=== PATIENT | female | born 1955 | race Caucasian/White ===

== ENCOUNTER 2019-12-25 09:35 | Day surgery (SDC) | payer MEDICARE, MEDICAID, SELFPAY ==
[2019-12-21 15:30] VITALS: BMI 36.9
[2019-12-25 10:04] VITALS: BP 122/73; PULSE 96; RESP 18; TEMP 36; O2SAT 96
[2019-12-25] MEDS: sodium chloride 0.9% 1,000 ML 30 ML IV (10:13)
--- NOTE | 2019-12-25 10:15 | P.ANESASSM_ITS ---
Pre-Anesthetic Assessment Pre-Anesthetic Assessment: Height/Weight: Height 1.65 m Weight 100.698 kg Temp Pulse Resp BP Pulse Ox 96.8 F L 96 18 122/73 96 12/25/19 10:04 12/25/19 10:04 12/25/19 10:04 12/25/19 10:04 12/25/19 10:04 Preop Diagnosis: gerd screening Proposed Procedure: Operation Date: 12/25/19 11:45 Proposed Procedures p EGD(Not Applicable) - Sharad Lopes MD s Colonoscopy 09894 Z12.11(Not Applicable) - Sharad Lopes MD Last intake: Intake Last Liquid Date 12/24/19 Last Liquid Time 20:00 Social: Social History: Tobacco (1999) and No alcohol Exam: Pre-Anes Outpt Exam: alert, oriented x 3, clear to auscultation bilaterally and regular rate & rhythm Airway: Submandibular: WNL Cervical ROM: WNL MP: 1 Dentition: False (upper and lower) History/ROS: No significant history except as noted Pulmonary: Pulmonary: CANAS CV/HEM: CV/HEM: HTN : : None reported Hepatic: Hepatic: None reported GI: GI: GERD (daily) Metabolic: Metabolic: DM, Hyperlipidemia, Morbid obesity and Thyroid Musc/skel: Musc/skel: Lower Back Pain, OA/DJD and Weakness (gen) Neuropsych: Neuropsych: Anxiety, CVA (no risidual), Depression and Neuropathy (feet and hands) Anesthetic Plan: ASA status: 3 Anesthesia: Anesthesia Evaluation and MAC Risk of > 500 ml blood loss (7ml/kg in children): No Meds/Allergies Current Medications: Current Medications Generic Name Dose Route Start Last Admin Trade Name Freq PRN Reason Stop Dose Admin Sodium Chloride 1,000 mls @ 30 ml s/hr 12/25/19 10:00 12/25/19 10:13 Sodium Chloride 0.9% IV 30 mls/hr .Q24H GLORY Administration PFSH Anesthesia PFSH: Medical History CVA (cerebral vascular accident) Diabetes Gastroesophageal reflux disease Hyperlipidemia Hypertension Surgical History History of arthroplasty of right ankle History of bladder suspension procedure History of colonoscopy History of esophagogastroduodenoscopy (EGD) History of hysterectomy History of laparoscopic cholecystectomy Family History Denies family history of Anesthesia complication Bleeding disorder Social History Smoking and tobacco status: former smoker Second hand smoke exposure: No Alcohol intake: never Adopted: No Caregiver/support person: Yes Lives independently: Yes Household members: spouse Housing: House Marital status: service: No Current occupational status: retired Pets and animals: No History of recent travel: No Sexually active: No Current gender identity: Female Ofelia/Restoration: Ep[employer]alian Special ofelia needs: No Data Anesthesia Cardiac Studies: No Data to Display
[2019-12-25 10:16] LABS: Glucose Point of Care 131 mg/dL (70-110)
--- NOTE | 2019-12-25 11:31 | W.PM.OPSUD ---
Surgery/Procedure H&P Update DATE OF PROCEDURE: December 25, 2019 DATE H&P PERFORMED: 12/10/19 H&P UPDATE INFORMATION: I have reviewed H&P completed within last 30 days, I have examined patient prior to procedure and No changes to prior documentation PREOP DIAGNOSIS: gerd screening PLANNED PROCEDURE: Operation Date: 12/25/19 11:45 Proposed Procedures p EGD(Not Applicable) - Sharad Lopes MD s Colonoscopy 28017 Z12.11(Not Applicable) - Sharad Lopes MD
[2019-12-25 11:35] VITALS: BP 96/64; PULSE 84; RESP 16; TEMP 36.8; O2SAT 93
--- NOTE | 2019-12-25 11:37 | ANE.PACU2 ---
Inpatient post-anesthesia follow up: Airway intact: Yes Vital signs: Temperature 98.3 F Pulse Rate 84 Respiratory Rate 16 Blood Pressure 96/64 Pulse Oximetry 93 Oxygen Delivery Me thod Nasal Cannula Oxygen Flow Rate 2.0 Fraction of Inspir ed Oxygen Hydration adequate: Yes Nausea and vomiting: No Pain level: 1 Mental status: Baseline
[2019-12-25 11:51] VITALS: BP 97/57; PULSE 85; RESP 18; O2SAT 92
== END 2019-12-25 12:10 | disposition home or self-care (01) ==
PROVIDERS: PCP Nurse Practitioner Family; Visit Provider Surgery
PROC: 0DJ08ZZ Inspection of Upper Intestinal Tract, Via Natural or Artificial Opening Endoscopic (ICD-10-PCS; CPT 43235; principal; 2019-12-25 11:45)
PROC: 0DJD8ZZ Inspection of Lower Intestinal Tract, Via Natural or Artificial Opening Endoscopic (ICD-10-PCS; CPT 45378; 2019-12-25 11:45)
DX: Z12.11 Encounter for screening for malignant neoplasm of colon (principal); K21.9 Gastro-esophageal reflux disease without esophagitis; K57.30 Diverticulosis of large intestine without perforation or abscess without bleeding; K29.70 Gastritis, unspecified, without bleeding; I10 Essential (primary) hypertension; E11.9 Type 2 diabetes mellitus without complications; E78.5 Hyperlipidemia, unspecified; E66.01 Morbid (severe) obesity due to excess calories; Z68.36 Body mass index [BMI] 36.0-36.9, adult; M19.90 Unspecified osteoarthritis, unspecified site; Z86.73 Personal history of transient ischemic attack (TIA), and cerebral infarction without residual deficits; Z79.82 Long term (current) use of aspirin
CPT/HCPCS: 12345; 36416; 43239; 45378; 82962; 88305; J2704; J7030

== ENCOUNTER → 2020-03-13 14:03 | Outpatient (BNVA) | payer MEDICARE, MEDICAID, SELFPAY | PROVIDERS: PCP Nurse Practitioner Family; Referring Provider Nurse Practitioner Family; Visit Provider Nurse Practitioner Family | DX: M25.571 Pain in right ankle and joints of right foot (principal); M12.571 Traumatic arthropathy, right ankle and foot | CPT/HCPCS: 73610 ==

== ENCOUNTER → 2020-04-09 08:38 | Outpatient (BNVA) | payer MEDICARE, MEDICAID, SELFPAY | PROVIDERS: PCP Nurse Practitioner Family; Referring Provider Nurse Practitioner Family; Visit Provider Podiatrist Foot & Ankle Surgery | DX: M25.572 Pain in left ankle and joints of left foot (principal) | CPT/HCPCS: 73610 ==

== ENCOUNTER 2020-04-29 06:00 | Outpatient (RCR) | payer MEDICARE, MEDICAID, SELFPAY | END 2020-05-24 23:59 | disposition home or self-care (01) | LOC: MOT 06:00 | PROVIDERS: PCP Nurse Practitioner Family; Referring Provider Podiatrist Foot & Ankle Surgery; Visit Provider Podiatrist Foot & Ankle Surgery | DX: M19.171 Post-traumatic osteoarthritis, right ankle and foot (principal); M19.172 Post-traumatic osteoarthritis, left ankle and foot; M24.571 Contracture, right ankle | CPT/HCPCS: 97166 ==

== ENCOUNTER → 2021-05-18 14:35 | Outpatient (BNVA) | payer MEDICARE, MEDICAID, SELFPAY | PROVIDERS: PCP Nurse Practitioner Family; Referring Provider Nurse Practitioner Family; Visit Provider Internal Medicine | DX: E11.42 Type 2 diabetes mellitus with diabetic polyneuropathy (principal); I63.9 Cerebral infarction, unspecified; E78.5 Hyperlipidemia, unspecified; N18.31 Chronic kidney disease, stage 3a; Z79.4 Long term (current) use of insulin | CPT/HCPCS: 99204 ==

== ENCOUNTER → 2021-06-04 13:23 | Outpatient (BNVA) | payer MEDICARE, MEDICAID, SELFPAY | PROVIDERS: PCP Nurse Practitioner Family; Visit Provider Internal Medicine | DX: E11.22 Type 2 diabetes mellitus with diabetic chronic kidney disease (principal); E11.42 Type 2 diabetes mellitus with diabetic polyneuropathy; E78.5 Hyperlipidemia, unspecified; N18.31 Chronic kidney disease, stage 3a; Z87.891 Personal history of nicotine dependence; Z79.4 Long term (current) use of insulin; Z68.36 Body mass index [BMI] 36.0-36.9, adult; Z86.73 Personal history of transient ischemic attack (TIA), and cerebral infarction without residual deficits | CPT/HCPCS: 99214 ==

== ENCOUNTER → 2021-06-17 14:27 | Outpatient (BNVA) | payer MEDICARE, MEDICAID, SELFPAY | PROVIDERS: PCP Nurse Practitioner Family; Visit Provider Internal Medicine | DX: E11.42 Type 2 diabetes mellitus with diabetic polyneuropathy (principal); E04.1 Nontoxic single thyroid nodule; I63.9 Cerebral infarction, unspecified; E78.5 Hyperlipidemia, unspecified; Z79.4 Long term (current) use of insulin | CPT/HCPCS: 99214 ==

== ENCOUNTER → 2021-09-14 14:10 | Outpatient (BNVA) | payer MEDICARE, MEDICAID, SELFPAY | PROVIDERS: PCP Nurse Practitioner Family; Visit Provider Internal Medicine | DX: E11.42 Type 2 diabetes mellitus with diabetic polyneuropathy (principal); E78.5 Hyperlipidemia, unspecified; N18.31 Chronic kidney disease, stage 3a; Z79.4 Long term (current) use of insulin; Z86.73 Personal history of transient ischemic attack (TIA), and cerebral infarction without residual deficits; Z86.16 Personal history of COVID-19 | CPT/HCPCS: 99214 ==

== ENCOUNTER 2021-10-06 11:46 | Outpatient (CLI) | payer MEDICARE, MEDICAID, SELFPAY ==
--- NOTE | 2021-10-06 12:00 | CTR_ITS ---
PROCEDURE INFORMATION: Exam: CT Abdomen And Pelvis With Contrast Exam date and time: 10/06/2021 12:00 PM Age: 66 years old Clinical indication: Abdominal pain; Localized; Right lower quadrant (rlq); Prior surgery; Surgery type: Gb; Additional info: C reactive protein serum elevated, mob TECHNIQUE: Imaging protocol: Computed tomography of the abdomen and pelvis with contrast. Radiation optimization: All CT scans at this facility use at least one of these dose optimization techniques: automated exposure control; mA and/or kV adjustment per patient size (includes targeted exams where dose is matched to clinical indication); or iterative reconstruction. Contrast material: OMNI 300; Contrast volume: 95 ml; Contrast route: INTRAVENOUS (IV); COMPARISON: US Pelvis Female [id number] 09/09/2018 4:20 PM RADIATION DOSE METRICS: Total DLP (mGy-cm): 1952.53 FINDINGS: Lungs: Infiltrate of unknown age is incompletely seen within the lingula and middle lobe. 2 mm nodule right lower lobe image 3/5. Small granuloma right lower lobe image 3/1. Liver: Enlarged moderately fatty liver 230 mm. Gallbladder and bile ducts: There is intra and extrahepatic biliary dilatation. The extrahepatic bile duct measures 13.5 cm. Status post cholecystectomy. On image number 3/34 and 3/35 there is a questionable 5 mm density within the distal common bile duct. This could be a small area of sludge versus a weakly calcified stone. Pancreas: Normal. No ductal dilation. Spleen: Splenic granulomata. Adrenal glands: Normal. No mass. Kidneys and ureters: Normal. No hydronephrosis. Stomach and bowel: Few scattered colonic diverticula. No evidence of colitis or diverticulitis. Appendix: Unremarkable visualized appendix. Intraperitoneal space: Unremarkable. No free air. No significant fluid collection. Vasculature: Unremarkable. No abdominal aortic aneurysm. Lymph nodes: Unremarkable. No enlarged lymph nodes. Urinary bladder: Unremarkable as visualized. Reproductive: Unremarkable as visualized. Bones/joints: Arthritis with minimal listhesis. Soft tissues: Unremarkable. Other findings: Moderate retained stool. CT/CT abdomen pelvis w con* [id number] IMPRESSION: 1. Intra and extrahepatic biliary dilatation status post cholecystectomy. Questionable weakly calcified density involving the distal common bile duct. Consider MRCP. 2. Right lower lobe nodule. For patients at low risk (minimal or absent history of smoking and of other known risk factors), no routine follow-up is indicated. For patients at high risk (history of smoking or of other known risk factors), consider optional CT Chest at 12 months. (Reference: Lora) 3. Large fatty liver. 4. Retained stool. REFERENCES: Lora Solares, et al. Guidelines for Management of Incidental Pulmonary Nodules Detected on CT Images: From the Fleischner Society 2017. Radiology. 2017;284(1):228-243.
[2021-10-06] MEDS: iohexol 300 mg/mL 50 mL Btl PO (12:30)
[2021-10-06 14:05] LABS: Blood Urea Nitrogen 22 mg/dL (8-23); Glomerular Filtration Rate 55.8 mL/min (90-130)
[2021-10-06] MEDS: iohexol 300 mg/mL 100 mL Btl IV (14:06)
== END 2021-10-06 11:47 | disposition home or self-care (01) ==
LOC: RAD 11:48
PROVIDERS: PCP Nurse Practitioner Family; Visit Provider Nurse Practitioner Family
DX: D72.829 Elevated white blood cell count, unspecified (principal); R79.82 Elevated C-reactive protein (CRP)
CPT/HCPCS: 73030; 74177; 82565; 84520

== ENCOUNTER 2021-10-20 14:21 | Outpatient (CLI) | payer MEDICARE, MEDICAID, SELFPAY ==
--- NOTE | 2021-10-20 15:40 | CT_ITS ---
WS: [id number] CONTRAST-ENHANCED CT HEAD TECHNIQUE: Contrast-enhanced CT of the head. CLINICAL INFORMATION: ELEVATED WHITE BLOOD CELL COUNT, C-REACTIVE PROTEIN, SERUM, COMPARISON: 2 16,019 DLP: 1163.[address] scans at [facility] use at least one of these dose optimization techniques: automated e xposure control; mA and/or kV adjustment per patient size (includes targeted exams where dose is matc hed to clinical indication); or iterative reconstruction. FINDINGS: No evidence of intracranial hemorrhage or mass effect. Ventricular system and basal cisterns are donis nt. Normal brooks-white differentiation. No extra-axial fluid collections. No abnormal intracranial enh ancement. Paranasal sinuses and mastoid air cells well aerated. Mild small vessel changes. Mild parenchymal volume loss. No other significant findings. CT/CT head w con [id number] IMPRESSION: 1. No abnormal intracranial enhancement. 2. Mild small vessel changes. Mild parenchymal volume loss. 3. No evidence of mass or mass effect.
[2021-10-20] MEDS: iohexol 300 mg/mL 100 mL Btl IV (16:13)
== END 2021-10-20 14:22 | disposition home or self-care (01) ==
LOC: RAD 14:22
PROVIDERS: PCP Nurse Practitioner Family; Visit Provider Nurse Practitioner Family
DX: D72.829 Elevated white blood cell count, unspecified (principal)
CPT/HCPCS: 70460

== ENCOUNTER 2021-12-03 14:55 | Outpatient (CLI) | payer MEDICARE, MEDICAID, SELFPAY ==
--- NOTE | 2021-12-03 16:00 | MR_ITS ---
WS: [id number] MRI/MRCP OF THE ABDOMEN WITHOUT GADOLINIUM ENHANCEMENT TECHNIQUE: Thin and thick slab MRCP, Axial T2, Coronal MRCP, Axial Dual Echo, and Axial 2-D Fiesta imaging was obtained. Coronal 2-D Fiesta imaging. CLINICAL INFORMATION: K76.0 - Fatty (change of) liver, not elsewhere classified COMPARISON: CT October 06, 2021 and ultrasound February 18, 2015 FINDINGS: Prior cholecystectomy. Unchanged dilatation of the intra and extrahepatic biliary ducts. Common bile duct measures approximately 10 mm. This appears unchanged since Ultrasound in 2014. No obstructing co mmon bile duct stones. Normal tapering of the common bile duct distally at the pancreatic head. Diffuse fatty infiltration of the liver. Hepatomegaly. Normal size spleen. Splenic granulomas. Small splenule. Normal portal vein and splenic vein. Tiny LEFT renal cyst. No pancreatic ductal dilatation. Adrenal glands are normal. No hydronephrosis in either kidney. Normal pancreas. Normal GE junction. Normal caliber abdominal aorta. MR/MR MRCP [id number] Impression: 1. Prior cholecystectomy. 2. Stable intra and extrahepatic biliary duct dilatation. Common bile duct vlad sures 10 mm. No evidence of choledocholithiasis. Normal tapering of the common bile duct distally. Common bile duct is unchanged since 2015 ultrasound. 3. Pancreas is normal in appearance. No evidence of pancreatic head mass. Norm al pancreatic duct. 4. Hepatomegaly with diffuse fatty infiltration liver. 5. No other significant findings.
== END 2021-12-03 14:56 | disposition home or self-care (01) ==
LOC: RAD 15:04
PROVIDERS: PCP Nurse Practitioner Family; Visit Provider Surgery
DX: K76.0 Fatty (change of) liver, not elsewhere classified (principal); K83.8 Other specified diseases of biliary tract; Z90.49 Acquired absence of other specified parts of digestive tract
CPT/HCPCS: 74181

== ENCOUNTER → 2021-12-09 14:57 | Outpatient (BNVA) | payer MEDICARE, MEDICAID, SELFPAY | PROVIDERS: PCP Nurse Practitioner Family; Visit Provider Surgery | DX: K76.0 Fatty (change of) liver, not elsewhere classified (principal); E66.9 Obesity, unspecified; Z68.35 Body mass index [BMI] 35.0-35.9, adult; E11.42 Type 2 diabetes mellitus with diabetic polyneuropathy | CPT/HCPCS: 99213 ==

== ENCOUNTER → 2021-12-15 14:05 | Outpatient (BNVA) | payer MEDICARE, MEDICAID, SELFPAY | PROVIDERS: PCP Nurse Practitioner Family; Visit Provider Internal Medicine | DX: E11.42 Type 2 diabetes mellitus with diabetic polyneuropathy (principal); E78.2 Mixed hyperlipidemia; E78.5 Hyperlipidemia, unspecified; I63.9 Cerebral infarction, unspecified; B37.9 Candidiasis, unspecified; Z79.4 Long term (current) use of insulin | CPT/HCPCS: 99214 ==

== ENCOUNTER → 2022-02-23 13:29 | Outpatient (BNVA) | payer MEDICARE, MEDICAID, SELFPAY | PROVIDERS: PCP Nurse Practitioner Family; Visit Provider Orthopaedic Surgery | DX: S49.91XA Unspecified injury of right shoulder and upper arm, initial encounter (principal); X58.XXXA Exposure to other specified factors, initial encounter | CPT/HCPCS: 99213 ==

== ENCOUNTER 2022-03-23 11:12 | Outpatient (CLI) | payer MEDICARE, MEDICAID, SELFPAY ==
--- NOTE | 2022-03-23 | US_ITS ---
WS: [id number] ULTRASOUND SOFT TISSUES LEFT clavicle HISTORY: EVAL LEFT SHOULDER FOR LIPOMA COMPARISON: None available. TECHNIQUE: 2-D and color Doppler imaging is submitted. Ultrasound is directed to the palpable area adjacent to the LEFT clavicle. There is an isoechoic mass with mild distortion of the soft tissues. There is slight mass effect upon the adjacent muscles. Hyp oechoic mass measures 2.1 x 0.8 cm and extends over a length of 3.3 cm. This is ovoid in configuratio n with no increased vascularity. US/US soft tissue/extremity [id number] IMPRESSION: Soft tissue mass adjacent to the LEFT clavicle is most consistent with a benign lipoma.
--- NOTE | 2022-03-23 11:45 | US_ITS ---
WS: [id number] THYROID ULTRASOUND HISTORY: Thyroid nodule. COMPARISON: None available. Right lobe: 2.1 cm x 1.6 cm x 3.9 cm (w x ap x l). Volume: 6.7 cm3. Normal size gland. No well formed nodules or echogenic foci. No increased vascularity. Left lobe: 1.3 cm x 1.1 cm x 4.0 cm (w x ap x l). Volume: 2.9 cm3. Small thyroid gland. Very nonspecific hypoechoic nodule measuring 4 x 3 x 5 mm in the inferior pole. No echogenic foci or suspicious findings. Isthmus: 0.3 cm. US/US thyroid [id number] IMPRESSION: TI-RADS 1. No suspicious thyroid nodules.
== END 2022-03-23 11:13 | disposition home or self-care (01) ==
LOC: RAD 11:14
PROVIDERS: PCP Nurse Practitioner Family; Visit Provider Internal Medicine
DX: E04.1 Nontoxic single thyroid nodule (principal); R22.32 Localized swelling, mass and lump, left upper limb
CPT/HCPCS: 76536; 76882

== ENCOUNTER → 2022-04-01 14:41 | Outpatient (BNVA) | payer MEDICARE, MEDICAID, SELFPAY | PROVIDERS: PCP Nurse Practitioner Family; Visit Provider Internal Medicine | DX: E11.69 Type 2 diabetes mellitus with other specified complication (principal); B37.9 Candidiasis, unspecified; E78.2 Mixed hyperlipidemia; Z86.73 Personal history of transient ischemic attack (TIA), and cerebral infarction without residual deficits; E78.5 Hyperlipidemia, unspecified; Z79.4 Long term (current) use of insulin; Z87.891 Personal history of nicotine dependence | CPT/HCPCS: 99214 ==

== ENCOUNTER → 2022-11-03 16:17 | Outpatient (BNVA) | payer BC, MEDICAID, SELFPAY | PROVIDERS: PCP Nurse Practitioner Family; Visit Provider Internal Medicine | DX: E04.1 Nontoxic single thyroid nodule (principal) | CPT/HCPCS: 84439; 84443; 84480 ==

== ENCOUNTER → 2023-11-24 13:52 | Outpatient (BNVA) | payer MEDICARE, MEDICAID, SELFPAY | PROVIDERS: PCP Nurse Practitioner Family; Visit Provider Podiatrist Foot & Ankle Surgery | DX: M19.171 Post-traumatic osteoarthritis, right ankle and foot | CPT/HCPCS: 73610; 73630; 99203 ==

== ENCOUNTER → 2023-11-28 13:32 | Outpatient (BNVA) | payer MEDICARE, MEDICAID, SELFPAY | PROVIDERS: PCP Nurse Practitioner Family; Referring Provider Nurse Practitioner Family; Visit Provider Surgery | DX: K52.9 Noninfective gastroenteritis and colitis, unspecified (principal); R10.13 Epigastric pain; Z98.84 Bariatric surgery status; R15.9 Full incontinence of feces; R32 Unspecified urinary incontinence | CPT/HCPCS: 99204; 99214 ==

== ENCOUNTER 2024-01-04 09:51 | Day surgery (SDC) | payer MEDICARE, MEDICAID, SELFPAY ==
[2024-01-04 10:18] VITALS: BP 99/70; PULSE 83; RESP 18; TEMP 36.4; O2SAT 93; BMI 23.1
[2024-01-04] MEDS: sodium chloride 0.9% 1,000 ML 30 ML IV (10:26)
--- NOTE | 2024-01-04 10:30 | ECG_ITS ---
[facility] Test Date: 2024-01-04 Pat Name: Britt Diaz Department: Room: Gender: Female Web Site Manager: : 1955 Requested By: Manuel Leiva Order Number: [id number] Louise MD: Marlon Kurtz M.D. Measurements Intervals Vernalis Rate: 74 P: 57 NC: 202 QRS: 46 QRSD: 97 T: 54 QT: 404 QTc: 451 Interpretive Statements SINUS RHYTHM Compared to ECG 12/09/2015 16:38:30 First degree AV block no longer present ST (T wave) deviation no longer present Early repolarization no longer present Electronically Signed On 01-04-2024 17:08:25 CDT by Marlon Kurtz M.D. [id number]
--- NOTE | 2024-01-04 10:33 | PM.HP ---
Providers/Chief Complaint Primary Care Provider: Carolina Mendoza Chief Complaint: K52.9, R10.13, R15.9 History of Present Illness Britt Diaz is a 68 year old female Review of Systems General: Reports: 10 or more systems reviewed and unremarkable except in HPI and below Medications/Allergies Home Medications Medication Instructions Recorded Confirmed Last Taken Type alprazolam 1 mg tablet 1 mg PO QID PRN Anxiety 12/10/19 01/03/24 01/04/24 08:00 History aspirin 325 mg tablet 325 mg PO DAILY 12/10/19 01/03/24 2 Weeks Ago History ~12/20/23 donepezil 10 mg tablet (Aricept) 10 mg PO DAILY 12/10/19 01/03/24 01/02/24 History duloxetine 60 mg capsule,delayed 60 mg PO DAILY 12/10/19 01/03/24 01/02/24 History release (Cymbalta) imipramine pamoate 100 mg capsule 200 mg PO DAILY 12/10/19 01/03/24 01/02/24 History memantine 5 mg tablet 5 mg PO QAM 12/10/19 01/03/24 01/02/24 History trazodone 100 mg tablet 200 mg PO QPM 12/10/19 01/03/24 01/02/24 History pantoprazole 40 mg tablet,delayed 40 mg PO QAM 6 weeks #42 tabs 01/08/20 01/03/24 01/02/24 Rx release (Protonix) non articulating AFO #1 ea 07/04/20 11/28/23 Unknown Rx blood-glucose meter (Blood Glucose #1 ea 06/04/21 11/28/23 Unknown Rx Monitoring kit) coenzyme Q10 75 mg capsule (Ultra 75 mg PO DAILY 08/06/21 01/03/24 01/02/24 History CoQ10) aripiprazole 5 mg tablet (Abilify) 5 mg PO DAILY 12/09/21 01/03/24 01/02/24 History biotin 10 mg tablet 10 mg PO DAILY 12/09/21 01/03/24 01/02/24 History cholecalciferol (vitamin D3) 125 125 mcg PO DAILY 12/09/21 01/03/24 01/02/24 History mcg (5,000 unit) capsule oxycodone 20 mg tablet 20 mg PO QID PRN Pain 12/09/21 01/03/24 01/04/24 08:00 History blood sugar diagnostic (OneTouch #300 strips 06/15/22 11/28/23 Unknown Rx Verio test strips) buspirone 10 mg tablet 10 mg PO BID 01/03/24 01/03/24 01/02/24 History dulaglutide 4.5 mg/0.5 mL 4.5 mg SUBCUT DIRECTED 01/03/24 01/03/24 12/29/23 History subcutaneous pen injector (Trulicity) empagliflozin 25 mg tablet 25 mg PO DAILY 01/03/24 01/03/24 01/02/24 History (Jardiance) hydroxyzine pamoate 25 mg capsule 25 mg PO BID PRN Anxiety 01/03/24 01/03/24 01/03/24 History levothyroxine 75 mcg tablet 75 mcg PO DAILY 01/03/24 01/03/24 01/04/24 08:00 History Allergies Allergy/AdvReac Type Severity Reaction Status Date / Time Antihistamines - Alkylamine Allergy Severe ADR/ALGY-Pa Verified 01/03/24 08:54 lpitations levofloxacin [From Levaquin] Allergy Severe ALGY-Rash Verified 01/03/24 08:54 PFSH Acute PFSH: Medical History (Updated 11/28/23 @ 14:16 by Marcelino Queen DO) Chronic pain Hyperlipidemia Gastroesophageal reflux disease Hypertension CVA (cerebral vascular accident) Diabetes Surgical History (Updated 11/28/23 @ 14:15 by Marcelino Queen DO) History of gastric bypass History of colonoscopy (12/25/19) Poor prep, repeat in 5 years History of esophagogastroduodenoscopy (EGD) (12/25/19) Severe gastritis History of arthroplasty of right ankle History of bladder suspension procedure History of hysterectomy History of laparoscopic cholecystectomy Family History Denies family history of Anesthesia complication Bleeding disorder Social History Smoking and tobacco/nicotine status: former use of tobacco/nicotine Second hand smoke exposure: No Alcohol intake: never Substance/Drug Use: never Adopted: No Caregiver/support person: Yes Lives independently: Yes Household members: spouse Housing: House Marital status: service: No Current occupational status: retired Pets and animals: No Sexually active: No Do you think of yourself as: Straight/Heterosexual Current gender identity: Female Ofelia/Zoroastrian: Evangelical Special ofelia needs: No Vitals/I&O/Wt Last Vital Signs Temp 97.6 F 01/04/24 10:18 Pulse 83 01/04/24 10:18 Resp 18 01/04/24 10:18 BP 99/70 01/04/24 10:18 Pulse Ox 93 01/04/24 10:18 O2 Del Method Room Air 01/04/24 10:18 Weight last 48 hrs Weight 143 lb A&P Assessment and plan (1) Gastroesophageal reflux disease: (2) Chronic diarrhea: (3) Encounter for screening colonoscopy: (4) Epigastric pain: Plan EGD and colonoscopy Attestations Medical Necessity Statement*: Home Coding Level of Care Code Acute Code for [facility] Fwd Diagnoses Gastroesophageal reflux disease K21.9 Chronic diarrhea K52.9 Encounter for screening colonoscopy Z12.11 Epigastric pain R10.13
[2024-01-04 10:35] LABS: Glucose Point of Care 121 mg/dL (70-110)
--- NOTE | 2024-01-04 10:53 | ANES.PREANE2 ---
Pre-Anesthetic Assessment Height/Weight: Height 1.68 m Weight 64.864 kg Temp Pulse Resp BP Pulse Ox O2 Del Method 97.6 F 83 18 99/70 93 Room Air 01/04/24 10:18 01/04/24 10:18 01/04/24 10:18 01/04/24 10:18 01/04/24 10:18 01/04/24 10:18 Operation Date: 01/04/24 11:00 Proposed Procedures p EGD 38101, 09604, G0105, K52.9, R10.13, R15.9(Not Applicable) - Marcelino Queen DO s Colonoscopy(Not Applicable) - Marcelino Queen DO Was Beta Aracely taken within 24 hours: N/A Was Clonidine taken within 24 hours: N/A Last intake: Intake Last Liquid Date 01/03/24 Last Liquid Time 23:50 Last Solid Date 01/02/24 Last Solid Time 20:00 Social No alcohol and No tobacco quit 25 years ago Exam alert, oriented x 3, clear to auscultation bilaterally and regular rate & rhythm Airway Submandibular: within normal limits Cervical ROM: within normal limits Mallampati: Class I Comments: Comments: dentures History/ROS No significant history except as noted and No significant complaints Pulmonary Chronic Obstructive Pulmonary Disease and Sleep Apnea patient has oxygen at home and prescribed 2 L NC but does not wear it. Patient had a sleep study and prescribed cpap but she does not wear it. that was before the 100 lbs weight loss after gastric bypass. sleeps in recliner with elevated HOB CV/HEM Hypertension and Palpitations METS > 6. EKG obtained, NSR. Chronic Renal Insufficiency Hepatic dilated CBD. patient denies liver problems GI epigastric pain radiating to back Metabolic Diabetes Mellitus and Thyroid Disease trulicity 1 week ago [facility] [place] Lower Back Pain Neuropsych Anxiety, Cerebrovascular Accident and Depression patient reports CVA was incidental finding but not residual Anesthetic Plan ASA status: 3 Anesthesia: Anesthesia Evaluation and MAC Risk of > 500 ml blood loss (7ml/kg in children): Yes, adequate IV access and fluids planned Medications/Allergies Home Medications Medication Instructions Recorded Confirmed Last Taken Type alprazolam 1 mg tablet 1 mg PO QID PRN Anxiety 12/10/19 01/03/24 01/04/24 08:00 History aspirin 325 mg tablet 325 mg PO DAILY 12/10/19 01/03/24 2 Weeks Ago History ~12/20/23 donepezil 10 mg tablet (Aricept) 10 mg PO DAILY 12/10/19 01/03/24 01/02/24 History duloxetine 60 mg capsule,delayed 60 mg PO DAILY 12/10/19 01/03/24 01/02/24 History release (Cymbalta) imipramine pamoate 100 mg capsule 200 mg PO DAILY 12/10/19 01/03/24 01/02/24 History memantine 5 mg tablet 5 mg PO QAM 12/10/19 01/03/24 01/02/24 History trazodone 100 mg tablet 200 mg PO QPM 12/10/19 01/03/24 01/02/24 History pantoprazole 40 mg tablet,delayed 40 mg PO QAM 6 weeks #42 tabs 01/08/20 01/03/24 01/02/24 Rx release (Protonix) non articulating AFO #1 ea 07/04/20 11/28/23 Unknown Rx blood-glucose meter (Blood Glucose #1 ea 06/04/21 11/28/23 Unknown Rx Monitoring kit) coenzyme Q10 75 mg capsule (Ultra 75 mg PO DAILY 08/06/21 01/03/24 01/02/24 History CoQ10) aripiprazole 5 mg tablet (Abilify) 5 mg PO DAILY 12/09/21 01/03/24 01/02/24 History biotin 10 mg tablet 10 mg PO DAILY 12/09/21 01/03/24 01/02/24 History cholecalciferol (vitamin D3) 125 125 mcg PO DAILY 12/09/21 01/03/24 01/02/24 History mcg (5,000 unit) capsule oxycodone 20 mg tablet 20 mg PO QID PRN Pain 12/09/21 01/03/24 01/04/24 08:00 History blood sugar diagnostic (OneTouch #300 strips 06/15/22 11/28/23 Unknown Rx Verio test strips) buspirone 10 mg tablet 10 mg PO BID 01/03/24 01/03/24 01/02/24 History dulaglutide 4.5 mg/0.5 mL 4.5 mg SUBCUT DIRECTED 01/03/24 01/03/24 12/29/23 History subcutaneous pen injector (Trulicity) empagliflozin 25 mg tablet 25 mg PO DAILY 01/03/24 01/03/24 01/02/24 History (Jardiance) hydroxyzine pamoate 25 mg capsule 25 mg PO BID PRN Anxiety 01/03/24 01/03/24 01/03/24 History levothyroxine 75 mcg tablet 75 mcg PO DAILY 01/03/24 01/03/24 01/04/24 08:00 History Allergies Allergy/AdvReac Type Severity Reaction Status Date / Time Antihistamines - Alkylamine Allergy Severe ADR/ALGY-Pa Verified 01/03/24 08:54 lpitations levofloxacin [From Levaquin] Allergy Severe ALGY-Rash Verified 01/03/24 08:54 Current Medications Generic Name Dose Route Start Last Admin Trade Name Freq PRN Reason Stop Dose Admin Sodium Chloride 1,000 mls @ 30 mls/hr 01/04/24 10:15 01/04/24 10:26 Sodium Chloride 0.9% IV 01/05/24 10:14 30 mls/hr .Q24H GLORY Administration PFSH Anesthesia Medical History (Updated 11/28/23 @ 14:16 by Marcelino Queen DO) Chronic pain Hyperlipidemia Gastroesophageal reflux disease Hypertension CVA (cerebral vascular accident) Diabetes Surgical History (Updated 11/28/23 @ 14:15 by Marcelino Queen DO) History of gastric bypass History of colonoscopy (12/25/19) Poor prep, repeat in 5 years History of esophagogastroduodenoscopy (EGD) (12/25/19) Severe gastritis History of arthroplasty of right ankle History of bladder suspension procedure History of hysterectomy History of laparoscopic cholecystectomy Family History Denies family history of Anesthesia complication Bleeding disorder Social History Smoking and tobacco/nicotine status: former use of tobacco/nicotine Second hand smoke exposure: No Alcohol intake: never Substance/Drug Use: never Adopted: No Caregiver/support person: Yes Lives independently: Yes Household members: spouse Housing: House Marital status: service: No Current occupational status: retired Pets and animals: No Sexually active: No Do you think of yourself as: Straight/Heterosexual Current gender identity: Female Ofelia/Uatsdin: Evangelical Special ofelia needs: No Data Anesthesia Cardiac Studies: No Data to Display
[2024-01-04 12:04] VITALS: BP 110/74; PULSE 90; RESP 14; TEMP 36.3; O2SAT 98
[2024-01-04 12:12] VITALS: BP 105/81; PULSE 101; RESP 17; O2SAT 97
[2024-01-04 12:23] VITALS: BP 99/68; RESP 18; O2SAT 94
[2024-01-04 13:12] LABS: C.Diff PCR (Lab) NEGATIVE (Negative)
--- NOTE | 2024-01-04 15:41 | ANE.PACU2 ---
Inpatient post-anesthesia follow up: Airway intact: Yes Vital signs: Temperature 97.4 F Pulse Rate 101 Respiratory Rate 18 Blood Pressure 99/68 Pulse Oximetry 94 Oxygen Delivery Me thod Room Air Oxygen Flow Rate Fraction of Inspir ed Oxygen Hydration adequate: Yes Nausea and vomiting: No Pain level: 2 Mental status: Baseline
== END 2024-01-04 12:40 | disposition home or self-care (01) ==
PROVIDERS: PCP Nurse Practitioner Family; Visit Provider Surgery
PROC: 0DJ08ZZ Inspection of Upper Intestinal Tract, Via Natural or Artificial Opening Endoscopic (ICD-10-PCS; CPT 43235; principal; 2024-01-04 11:00)
PROC: 0DJD8ZZ Inspection of Lower Intestinal Tract, Via Natural or Artificial Opening Endoscopic (ICD-10-PCS; CPT 45378; 2024-01-04 11:00)
DX: K52.9 Noninfective gastroenteritis and colitis, unspecified (principal); K21.9 Gastro-esophageal reflux disease without esophagitis; Z79.82 Long term (current) use of aspirin; E78.5 Hyperlipidemia, unspecified; I10 Essential (primary) hypertension; Z86.73 Personal history of transient ischemic attack (TIA), and cerebral infarction without residual deficits; E11.9 Type 2 diabetes mellitus without complications; Z87.891 Personal history of nicotine dependence; K57.30 Diverticulosis of large intestine without perforation or abscess without bleeding; K29.70 Gastritis, unspecified, without bleeding; J44.9 Chronic obstructive pulmonary disease, unspecified; G47.30 Sleep apnea, unspecified; Z99.81 Dependence on supplemental oxygen; F32.A Depression, unspecified
CPT/HCPCS: 36416; 43239; 45380; 82274; 82962; 83630; 87045; 87177; 87209; 87427; 87449; 87493; 88305; 93005; J2704; J3010; J7030

== ENCOUNTER → 2024-01-16 14:48 | Outpatient (BNVA) | payer MEDICARE, MEDICAID, SELFPAY | PROVIDERS: PCP Nurse Practitioner Family; Visit Provider Surgery | DX: Z09 Encounter for follow-up examination after completed treatment for conditions other than malignant neoplasm (principal) | CPT/HCPCS: 99214 ==

== ENCOUNTER → 2024-02-16 14:41 | Outpatient (BNVA) | payer MEDICARE, MEDICAID, SELFPAY | PROVIDERS: PCP Nurse Practitioner Family; Visit Provider Surgery | DX: Z09 Encounter for follow-up examination after completed treatment for conditions other than malignant neoplasm (principal); K52.9 Noninfective gastroenteritis and colitis, unspecified | CPT/HCPCS: 99214 ==

== ENCOUNTER → 2024-11-12 11:49 | Outpatient (BNVA) | payer MEDICARE, MEDICAID, SELFPAY | PROVIDERS: PCP Nurse Practitioner Family; Visit Provider Orthopaedic Surgery | DX: M79.641 Pain in right hand (principal); M25.531 Pain in right wrist; M18.11 Unilateral primary osteoarthritis of first carpometacarpal joint, right hand; M19.041 Primary osteoarthritis, right hand | CPT/HCPCS: 20600; 73130; 99204; J3301; J3490; J9999 ==